=== PATIENT | female | born 1990 | race Caucasian/White ===

== ENCOUNTER 2017-07-13 16:35 | Emergency (ER) | payer MEDICAID ==
[~2017-07-13] VITALS: Ht 157.5 cm; Wt 95.3 kg
[2017-07-13] MEDS ORDERED: LISINOPRIL20 MG PO (16:52)
[2017-07-13] MEDS ORDERED: METOPROLOL SUCC50 MG PO (16:53)
[2017-07-13] MEDS ORDERED: NORVASC2.5 MG PO ×2 (16:53→17:06)
[2017-07-13] MEDS ORDERED: PRINIVIL20 MG PO (17:06)
[2017-07-13] MEDS ORDERED: LOPRESSOR50 PO (17:06)
[2017-07-13 17:22] VITALS: BP 189/125
== END 2017-07-13 17:26 | disposition home or self-care (01) ==
LOC: M.ERS 16:35
DX: I10 Essential (primary) hypertension (principal); Z76.0 Encounter for issue of repeat prescription; E11.9 Type 2 diabetes mellitus without complications; Z86.2 Personal history of diseases of the blood and blood-forming organs and certain disorders involving the immune mechanism